=== PATIENT | female | born 1980 | race Caucasian/White ===

== ENCOUNTER → 2017-08-10 | Outpatient (CLI) | payer OTHER, SELFPAY | PROVIDERS: Visit Provider Obstetrics & Gynecology | DX: R10.2 Pelvic and perineal pain (principal); N92.0 Excessive and frequent menstruation with regular cycle | CPT/HCPCS: 76830 ==

== ENCOUNTER → 2017-09-11 16:32 | Outpatient (CLI) | payer OTHER, SELFPAY ==
[2017-09-11 16:36] LABS: Microscopic, Urine URINE MICROSCOPIC (MICROSCOPIC)
[2017-09-11 16:49] LABS: Basophils # 0.1 K/mm3 (0-0.2); Basophils % 0.5 % (0.1-2.0); Eosinophils # 0.3 K/mm3 (0.0-0.4); Eosinophils % 2.4 % (0.1-12.0); Hematocrit 40.1 % (37.0-47.0); Hemoglobin 13.1 g/dL (12.2-16.2); Lymphocytes # 4.1 K/mm3 (0.7-4.5); Lymphocytes % 38.6 K/mm3 (10-50); Mean Corpuscular HGB Conc 32.7 g/dL (31.8-35.4); Mean Corpuscular Hemoglobin 30.6 pg (27.0-31.2); Mean Corpuscular Volume 93.6 fl (81-99); Mean Platelet Volume 7.6 fl (7.4-10.4); Monocytes # 0.6 K/mm3 (0.1-1.0); Monocytes % 5.3 % (1.7-9.3); Neutrophils # 5.6 K/mm3 (1.8-7.8); Neutrophils % 53.1 % (37.0-80.0); Platelet Count 289 K/mm3 (142-424); Red Blood Count 4.29 M/mm3 (4.20-5.40); Red Cell Distribution Width 13.4 % (11.5-17.5); White Blood Count 10.6 K/mm3 (4.8-10.8)
[2017-09-11 17:43] LABS: Appearance,Urine CLEAR (Clear); Bilirubin,Urine Negative (Negative); Blood, Urine 1+ (Negative); Color,Urine YELLOW (Yellow); Glucose,Urine (UA) Negative (Negative); Ketones,Urine Negative (Negative); Leukocyte Esterase,Urine Negative (Negative); Nitrate,Urine Negative (Negative); Protein,Urine Negative (Negative); Specific Gravity, Urine <= 1.005 (1.005-1.030); Urobilinogen,Urine 0.2 EU/dl (0.2)
[2017-09-11 18:14] LABS: Bacteria,Urine Trace /lpf; RBC,Urine Occasional #/hpf (0-3); Squamous Epithelial Cell,Urine Occasional #/hpf (0-5)
[2017-09-11 18:25] LABS: HCG Qualitative, Serum Negative (Negative)
[2017-09-11 18:35] LABS: Alanine Aminotransferase 17 U/L (12-78); Albumin/Globulin Ratio 1.3 (1.1-1.8); Alkaline Phosphatase 48 U/L (46-116); Anion Gap 12.3 mEq/L (5-15); Aspartate Amino Transferase 16 U/L (15-37); Bilirubin,Total 0.2 mg/dL (0.2-1.0); Blood Urea Nitrogen 7 mg/dL (7-18); Calcium 8.8 mg/dL (8.5-10.1); Carbon Dioxide 27 mmol/L (21.0-32.0); Chloride 103 mmol/L (98-107); Creatinine,Serum 0.59 mg/dL (0.55-1.02); Estimated Glomerular Filt Rate 115 ml/min (>60); GFR (African American) 140 ML/MIN (>60); Globulin 3.2 gm/dl (1.3-3.2); Glucose 77 mg/dL (74-106); Potassium 4.3 mmoL/L (3.5-5.1); Sodium 138 mmol/L (136-145); Total Protein,Serum 7.2 gm/dL (6.4-8.2)
== END ==
PROVIDERS: PCP Emergency Medicine; Visit Provider Obstetrics & Gynecology
DX: N93.8 Other specified abnormal uterine and vaginal bleeding (principal); N83.202 Unspecified ovarian cyst, left side; Z01.818 Encounter for other preprocedural examination
CPT/HCPCS: 36415; 80053; 81001; 84703; 85025

== ENCOUNTER 2017-09-14 06:01 | Day surgery (SDC) | payer OTHER, SELFPAY ==
[2017-09-12 15:41] VITALS: BMI 23.0
[2017-09-14] VITALS (17 sets, daily range): BP systolic 90–107; BP diastolic 50–62; PULSE 59–73; RESP 16–98; TEMP 36.1–43; O2SAT 92–98
[2017-09-14 06:31] LABS: Urine Pregnancy, HCG Qual. Negative (Negative)
--- NOTE | 2017-09-14 06:56 | P.PN_ITS ---
[facility] Anesthesia Checklist - Patient Identification Patient Identification: Arm Band, Verbal (Name & ) - Structural Data Admitted From: Home Planned Operative Procedure/s: dx lap, d&c Consent for Planned Operative Procedure(s) Verified: Yes Verified Documents: Surgical Consent - Chart Verification Results Verified: CBC, BMP - Additional verifications Patient : No Anesthesia Reactions: No Hx Blood Transfusions: No Blood Transfusion Reaction: No Cephalosporin Allergy: No Previous Colonoscopy: No - Cardiovascular Assessment Heart Sounds: S1 & S2 Pulse Strength: Strong Pulse Rhythm: Regular Peripheral Edema: No - Airway Assessment C-Spine Mobility Assessed: Yes TMJ Mobility Assessed: Yes Dentition: Edentulous - Neurological Assessment Level of Consciousness: Awake, Alert, Appropriate Hx Seizures: No Numbness or tingling in extremities: No - Anesthesia Plan Anesthesia Risk discussed: Yes Anesthesia Plan: Verified ASA Class: I Anesthesia Type: General [facility] Anesthesia HX I have reviewed the patient's past medical history: Yes Medical History: Reports:: Cancer (cervical) Denies:: Diabetes Mellitus Type 1, Diabetes Mellitus Type 2, MRSA, Seizures Other Medical History: Denies: Blood Transfusion Reaction Other Surgeries: Yes: Dilation and Curettage, Other Amputation: No Fractures: No Comment: cone bx *Family Hx:: Cancer, Hypertension
--- NOTE | 2017-09-14 08:06 | HMH.OPNOTE ---
Date of procedure: 09/14/17 Pre-op Diagnosis:: Preop diagnoses: 1. Dysfunctional uterine bleeding. 2. Pelvic pain. Post-op diagnosis:: other (1. Dysfunctional uterine bleeding.2. Pelvic pain.3. Pelvic adhesions.4. Endometriosis.) Procedure performed:: 1. Dysfunctional uterine bleeding. 2. Pelvic pain. 3. Pelvic adhesions. 4. Endometriosis. Surgeon:: Jesus Polanco MD ROOM SERVICE SERVER:: Ashish Singh Anesthesia: GETA Estimated blood loss (mL): 10 Operative findings:: Pelvic adhesions and endometriosis Operative note:: After the patient was prepped and draped in usual fashion and general anesthesia was administered, examination under anesthesia revealed a normal-sized anteverted uterus, with no palpable adnexal masses. A weighted speculum was placed within the posterior fourchette of the vagina, and the anterior lip of the cervix was grasped with a single-tooth tenaculum. The uterus was then sounded in an anteverted direction to 9 mm, and easily dilated to #20 Hegar dilators. A sharp curette was introduced into the endometrial cavity, with retrieval of a moderate amount of lush endometrium. A HUMI uterine elevator was then inserted into the endocervix, and the bulb inflated for uterine manipulation during the laparoscopy. After appropriate regloving, the skin on either side of the umbilicus was tented up with towel clips. A small incision was made in the base of the umbilicus with a knife, and a Veress needle was inserted into the abdominal cavity. After demonstration of negative pressure, and adequate phisoperitoneum was created with carbon dioxide gas. The Veress needle was then replaced with a trocar and cannula, using the Gridstore system, and the trocar placed a laparoscope. The uterus was of normal size and configuration. There were omental adhesions from the anterior abdominal wall to the right side of the fundus, and these were taken down with a combination of sharp dissection and cautery. The right tube and ovary appeared normal. On the left side, the ovary was slightly enlarged, and contained endometriotic implants on the surface. The reflection of the bladder peritoneum was inspected and found to be normal. The cul-de-sac was then inspected and there were several reddish and yellowish blebs of endometriosis noted, along with a deep peritoneal pocket defect in the left broad ligament. After transillumination and under direct visualization, accessory ports were placed in the right and left lower quadrants. Using a combination of endo-Babcocks and the Endo DIMITRI staplers, the left adnexa was grasped and the ovarian and infundibulopelvic ligaments were cross-clamped and stapled, thus removing the left adnexa. There was no undue bleeding. The upper abdomen was explored, and found to be normal. An Endo Catch basket was then placed within the left lower quadrant port, and the specimen was placed within it and brought out through that port and submitted for pathology. The phisoperitoneum was then reduced, and the instruments were removed under direct visualization. The skin incisions were infused with a dilute solution of Marcaine, as a local anesthetic, and closed with subcuticular sutures of 3-0 Vicryl. The wounds were appropriately dressed. The HUMI was deflated and removed. The sponge and needle count was correct. The estimated blood loss was less than 10 cc. The patient tolerated the procedure well, and was taken to PACU in excellent condition. She will be discharged today, if her vital signs stable. Condition: stable Disposition: same day Specimens:: Uterine curettings Complications:: None
--- NOTE | 2017-09-14 08:09 | P.OP_ITS ---
Date of procedure: 09/14/17 Pre-op Diagnosis:: Preop diagnoses: 1. Dysfunctional uterine bleeding. 2. Pelvic pain. Post-op diagnosis:: other (1. Dysfunctional uterine bleeding.2. Pelvic pain.3. Pelvic adhesions.4. Endometriosis.) Procedure performed:: 1. Dysfunctional uterine bleeding. 2. Pelvic pain. 3. Pelvic adhesions. 4. Endometriosis. Surgeon:: Jesus Polanco MD ELECTRIC RELAY TESTER:: Ashish Singh Anesthesia: GETA Estimated blood loss (mL): 10 Operative findings:: Pelvic adhesions and endometriosis Operative note:: After the patient was prepped and draped in usual fashion and general anesthesia was administered, examination under anesthesia revealed a normal- sized anteverted uterus, with no palpable adnexal masses. A weighted speculum was placed within the posterior fourchette of the vagina, and the anterior lip of the cervix was grasped with a single-tooth tenaculum. The uterus was then sounded in an anteverted direction to 9 mm, and easily dilated to #20 Hegar dilators. A sharp curette was introduced into the endometrial cavity, with retrieval of a moderate amount of lush endometrium. A HUMI uterine elevator was then inserted into the endocervix, and the bulb inflated for uterine manipulation during the laparoscopy. After appropriate regloving, the skin on either side of the umbilicus was tented up with towel clips. A small incision was made in the base of the umbilicus with a knife, and a Veress needle was inserted into the abdominal cavity. After demonstration of negative pressure, and adequate phisoperitoneum was created with carbon dioxide gas. The Veress needle was then replaced with a trocar and cannula, using the Quizens system, and the trocar placed a laparoscope. The uterus was of normal size and configuration. There were omental adhesions from the anterior abdominal wall to the right side of the fundus, and these were taken down with a combination of sharp dissection and cautery. The right tube and ovary appeared normal. On the left side, the ovary was slightly enlarged, and contained endometriotic implants on the surface. The reflection of the bladder peritoneum was inspected and found to be normal. The cul-de-sac was then inspected and there were several reddish and yellowish blebs of endometriosis noted, along with a deep peritoneal pocket defect in the left broad ligament. After transillumination and under direct visualization, accessory ports were placed in the right and left lower quadrants. Using a combination of endo-Babcocks and the Endo DIMITRI staplers, the left adnexa was grasped and the ovarian and infundibulopelvic ligaments were cross-clamped and stapled, thus removing the left adnexa. There was no undue bleeding. The upper abdomen was explored, and found to be normal. An Endo Catch basket was then placed within the left lower quadrant port, and the specimen was placed within it and brought out through that port and submitted for pathology. The phisoperitoneum was then reduced, and the instruments were removed under direct visualization. The skin incisions were infused with a dilute solution of Marcaine, as a local anesthetic , and closed with subcuticular sutures of 3-0 Vicryl. The wounds were appropriately dressed. The HUMI was deflated and removed. The sponge and needle count was correct. The estimated blood loss was less than 10 cc. The patient tolerated the procedure well, and was taken to PACU in excellent condition. She will be discharged today, if her vital signs stable. Condition: stable Disposition: same day Specimens:: Uterine curettings Complications:: None
--- NOTE | 2017-09-14 08:11 | HMH.ANESI ---
[facility] Anesthesia Record Part I Intake, IV Amount: 1,000 Estimated blood loss (mL): 10 Urine output (mL): 25 Blood Pressure: 95/59 SaO2: 95 Pulse Rate: 73 Respiratory Rate: 16 Temperature: 97.2 F Patient is:: Drowsy, Nasal O2, Stable Stable to PACU at:: 08:10
--- NOTE | 2017-09-14 08:12 | P.PN_ITS ---
[facility] Anesthesia Record Part II Discharge Time: 08:40 Destination: [facility] PACU nurse assessment reviewed?: Yes Patient Condition:: Good Anesthesia Complications:: None
--- NOTE | 2017-09-14 08:12 | HMH.ANESII ---
[facility] Anesthesia Record Part II Discharge Time: 08:40 Destination: [facility] PACU nurse assessment reviewed?: Yes Patient Condition:: Good Anesthesia Complications:: None
[2017-09-14 09:39] LABS: Hematocrit 35.5 % (37.0-47.0); Hemoglobin 11.7 g/dL (12.2-16.2)
== END 2017-09-14 10:45 | disposition home or self-care (01) ==
PROVIDERS: Family Provider Emergency Medicine; PCP Emergency Medicine; Visit Provider Obstetrics & Gynecology
PROC: (CPT 58120; principal; 2017-09-14 07:30)
DX: N93.8 Other specified abnormal uterine and vaginal bleeding (principal); R10.2 Pelvic and perineal pain; N80.0 Endometriosis of uterus
CPT/HCPCS: 58661; 58120; 36415; 81025; 85014; 85018; 96374; J0131; J2405; J2710

== ENCOUNTER → 2018-05-29 14:28 | Outpatient (CLI) | payer OTHER, SELFPAY ==
--- NOTE | 2018-05-29 14:30 | US_ITS ---
US transvaginal HISTORY: ITS.REASON: pelvic pain known endometriosis ORDERING PHYSICIAN: Jesus Polanco MD PATIENT AGE: 37 years Comparison: 08/10/2017 Last menstrual period 05/22/2018 FINDINGS: The uterus measures 8.4 x 4.7 x 5.5 cm. Combined and endometrial thickness is 1 cm.. Nabothian cysts are noted. The right ovary measures 3.4 x 22.6 cm and contains a 1.5 x 1 cm cyst. The ovary has a lobulated contour. The left ovary is surgically absent. No cul-de-sac fluid evident. IMPRESSION: 1. Prior left oophorectomy. 2. Small right ovarian cyst at 1.5 cm
== END ==
PROVIDERS: Family Provider Emergency Medicine; PCP Emergency Medicine; Visit Provider Obstetrics & Gynecology
DX: N80.9 Endometriosis, unspecified (principal); R10.2 Pelvic and perineal pain
CPT/HCPCS: 76830

== ENCOUNTER → 2018-06-21 16:46 | Outpatient (CLI) | payer OTHER, SELFPAY ==
[2018-06-21 16:49] LABS: Microscopic, Urine URINE MICROSCOPIC (MICROSCOPIC)
[2018-06-21 17:30] LABS: Appearance,Urine CLEAR (Clear); Bilirubin,Urine Negative (Negative); Blood, Urine Negative (Negative); Color,Urine YELLOW (Yellow); Glucose,Urine (UA) Negative (Negative); Ketones,Urine Negative (Negative); Leukocyte Esterase,Urine Negative (Negative); Nitrate,Urine Negative (Negative); Protein,Urine Negative (Negative); Specific Gravity, Urine 1.015 (1.005-1.030); Urobilinogen,Urine 0.2 EU/dl (0.2)
[2018-06-21 17:53] LABS: Basophils # 0.1 K/mm3 (0-0.2); Basophils % 0.8 % (0.1-2.0); Eosinophils # 0.2 K/mm3 (0.0-0.4); Eosinophils % 2.9 % (0.1-12.0); Hematocrit 40.8 % (37.0-47.0); Hemoglobin 13.1 g/dL (12.2-16.2); Lymphocytes # 3.5 K/mm3 (0.7-4.5); Lymphocytes % 46.3 K/mm3 (10-50); Mean Corpuscular HGB Conc 32.2 g/dL (31.8-35.4); Mean Corpuscular Hemoglobin 30.7 pg (27.0-31.2); Mean Corpuscular Volume 95.6 fl (81-99); Mean Platelet Volume 7.4 fl (7.4-10.4); Monocytes # 0.5 K/mm3 (0.1-1.0); Monocytes % 6.3 % (1.7-9.3); Neutrophils # 3.3 K/mm3 (1.8-7.8); Neutrophils % 43.6 % (37.0-80.0); Platelet Count 255 K/mm3 (142-424); Red Blood Count 4.27 M/mm3 (4.20-5.40); White Blood Count 7.6 K/mm3 (4.8-10.8)
[2018-06-21 19:22] LABS: Alanine Aminotransferase 13 U/L (12-78); Albumin Level 3.8 gm/dL (3.4-5.0); Albumin/Globulin Ratio 1.3 (1.1-1.8); Alkaline Phosphatase 51 U/L (46-116); Anion Gap 12.8 mEq/L (5-15); Aspartate Amino Transferase 12 U/L (15-37); Bilirubin,Total 0.2 mg/dL (0.2-1.0); Blood Urea Nitrogen 9 mg/dL (7-18); Calcium 8.7 mg/dL (8.5-10.1); Carbon Dioxide 27 mmol/L (21.0-32.0); Chloride 105 mmol/L (98-107); Creatinine,Serum 0.64 mg/dL (0.55-1.02); Estimated Glomerular Filt Rate 104 ml/min (>60); GFR (African American) 126 ML/MIN (>60); Glucose 91 mg/dL (74-106); Potassium 3.8 mmoL/L (3.5-5.1); Sodium 141 mmol/L (136-145); Total Protein,Serum 6.8 gm/dL (6.4-8.2)
[2018-06-21 19:47] LABS: Bacteria,Urine Trace /lpf; Squamous Epithelial Cell,Urine Occasional #/hpf (0-5)
[2018-06-21 20:24] LABS: HCG Qualitative, Serum Negative (Negative)
== END ==
PROVIDERS: Visit Provider Obstetrics & Gynecology
DX: Z01.818 Encounter for other preprocedural examination (principal); N80.9 Endometriosis, unspecified; R10.2 Pelvic and perineal pain
CPT/HCPCS: 36415; 80053; 81001; 84703; 85025

== ENCOUNTER 2018-06-26 06:27 | Inpatient (IN) ==
--- NOTE | 2018-06-26 07:33 | Progress Note ---
[facility] Anesthesia Checklist - Patient Identification Patient Identification: Arm Band - Structural Data Admitted From: Home Planned Operative Procedure/s: YADIRA, RSO, Lysis of Adhesions Consent for Planned Operative Procedure(s) Verified: Yes Verified Documents: Surgical Consent, History and Physical - NPO Status Verified Time NPO: 00:00 - Additional verifications Anesthesia Reactions: No - Airway Assessment C-Spine Mobility Assessed: Yes (mp2) TMJ Mobility Assessed: Yes Dentition: Good Dentition - Neurological Assessment Level of Consciousness: Awake, Alert - Anesthesia Plan Anesthesia Risk discussed: Yes Anesthesia Plan: Verified ASA Class: II Anesthesia Type: General [facility] History I have reviewed the patient's past medical history: Yes Medical History: Reports:: Cancer (cervical) Denies:: Diabetes Mellitus Type 1, Diabetes Mellitus Type 2, Internal Pacemaker, MRSA, Seizures Other Medical History: Denies: Blood Transfusion Reaction Other Surgeries: Yes: , Dilation and Curettage, Other (dx laparoscopy, LEEP procedure). No: Pacemaker Amputation: No Fractures: No - *Social History Educational Level: Completed High School Smoking Status: Current every day smoker Tobacco Type: cigarettes # Packs/Day (cigarettes): 1 Alcohol Intake: never Alcohol Intake Frequency:: other Substance Use Type: denies use Occupational Status: employed Housing: house - Psychiatric History Expresses thoughts of harming self/others: None Suicide Plan Description: No Plan *Family Hx:: Cancer, Hypertension
--- NOTE | 2018-06-26 10:11 | Operative Note ---
Date of procedure: 06/26/18 Pre-op Diagnosis:: 1. Pelvic pain. 2. Endometriosis. Post-op Diagnosis:: 1. Pelvic pain. 2. Endometriosis. 3. Extensive adhesions. Procedure performed:: 1. Total abdominal hysterectomy. 2. Right salpingo-oophorectomy. 3. Extensive lysis of adhesions. Surgeon:: Jesus Polanco MD Accounts Executive(s):: EYSY Rodriguez PRODUCTION LINE:: Pollo Hough Anesthesia: GETA Estimated blood loss (mL): 300 Operative findings:: 1. Extensive omental adhesions. 2. Endometriosis. Operative note:: After the patient was prepped and draped in usual fashion and general anesthesia was administered, a low Pfannenstiel incision was made through the previous incision, and the fat and fascia in usual fashion, bleeders being clamped and coagulated along the way. Peritoneum was entered with a bump scissors, and extended above and below. There were extensive omental adhesions to the anterior abdominal wall, and these were taken down with a combination of sharp dissection and cautery. The bowel was then packed away, and a self- retaining Colfax retractor blade was placed. The uterus was slightly enlarged and boggy. The tube and ovary were surgically absent. The right tube and ovary were present, and there was a small right ovarian cyst identified. Endometrial implants were noted throughout the cul-de-sac. The uterine fundus was grasped with a double-tooth tenaculum, and the round ligaments on either side were Madelyn clamped, cut, and Madelyn suture with #1 Vicryl. The bladder flap was developed with sharp and blunt dissection (3 previous sections), and the bladder was protected with the bladder blade. The ovarian ligament was crossclamped and cut, thus including the right tube and ovary within the uterine specimen. This pedicle was Madelyn sutured, and then free tied with #1 Vicryl. The uterine vessels, the cardinal and the uterosacral ligaments were individually, bilaterally, Madelyn clamped, cut, and Madelyn sutured with #1 Vicryl. The vagina was then entered anteriorly with a knife, and Lindsey clamps were used to tent up the vaginal cuff, as the use was removed with Lexx scissors. The vaginal cuff was then closed with a running lock suture of #1 Vicryl, to include the uterosacral ligaments for vaginal support. The pelvis was then irrigated. There was no bleeding except for some oozing along the back of the vaginal cuff, and Surgicel was placed there for hemostasis. The upper abdomen was then explored. The appendix was identified and found to be retrocecal, and remains in situ. The peritoneum was then grasped with 3 Jihan clamps, and closed with a running semi-locked suture of 0 Vicryl. The muscle was approximated with a running unlocked suture of 0 Vicryl. The fascia was closed with a running locked suture of #1 Vicryl. The subcutaneous fat and Gracy's fascia were closed with a running unlocked suture of 2-0 Vicryl. The skin was closed with a running unlocked suture of 3-0 Vicryl, and appropriately dressed. The urine is clear in the Chowdhury catheter. The sponge and needle counts correct. The estimated blood loss was 300 cc. The patient tolerated the procedure well, and was taken to PACU in excellent condition. She will be admitted postoperatively. Condition: stable Disposition: PACU Specimens:: 1. Uterus. 2. Right adnexa. Complications:: None
--- NOTE | 2018-06-26 10:19 | Progress Note ---
[facility] Anesthesia Record Part II Discharge Time: 10:45 Destination: Surgical Day Care (OP Surgery) PACU nurse assessment reviewed?: Yes Patient Condition:: Good Anesthesia Complications:: None
--- NOTE | 2018-06-26 10:19 | Progress Note ---
[facility] Anesthesia Record Part I Intake, IV Amount: 1,600 Estimated blood loss (mL): 10 Urine output (mL): 50 Blood Products used (#): none Blood Pressure: 116/71 SaO2: 95 Pulse Rate: 70 Respiratory Rate: 20 Temperature: 97.9 F Patient is:: Awake, Stable Stable to PACU at:: 10:15
[2018-06-26 11:37] LABS: Hematocrit 36.3 % (37.0-47.0); Hemoglobin 11.9 g/dL (12.2-16.2)
--- NOTE | 2018-06-26 13:29 | Pharmacy Consult Notes ---
[facility] Pharmacy VTE Monitoring - Patient Demographics Admission date: 06/26/18 Report Date: 06/26/18 Time: 13:26 Allergies/Adverse Reactions: Patient Allergies No Known Drug Allergies [NKDA] Allergy (Unknown, Verified 06/26/18 06:53) Height: 1.6 m Weight: 61.235 kg - VTE Risk Labs: VTE Related Lab Results Hgb 11.9 g/dL (12.2-16.2) L 06/26/18 11:13 Hct 36.3 % (37.0-47.0) L 06/26/18 11:13 - Prophylaxis VTE Prophylaxis Ordered?: Yes Types of VTE Prophylaxis: IPCS Knee High Location of Applied Device: Bilateral Lower Extremeties
--- NOTE | 2018-06-26 16:47 | Progress Note ---
Internal Medicine - PN: Subj *Date: 06/26/18 *Time: 16:46 Interval history: This is day of surgery. The patient is afebrile. Vital signs stable. Wound clean. Abdomen soft. Hemoglobin 11.9 g. Surgery has been explained to the patient. Impression: Stable. Exam Vital signs and Labs for Last 24 Hours: Temp Pulse Resp BP Pulse Ox 98.0 F 74 16 106/62 L 99 06/26/18 11:05 06/26/18 15:05 06/26/18 12:35 06/26/18 15:05 06/26/18 15:05 Laboratory Results - last 24 hr 06/26/18 08:41: Urine Color Straw, Urine Appearance Clear, Urine pH 7.0, Ur Specific [place] 1.015, Urine Protein Negative, Urine Glucose (UA) Negative, Urine Ketones Negative, Urine Blood Negative, Urine Nitrate Negative, Urine Bilirubin Negative, Urine Urobilinogen 0.2, Ur Leukocyte Esterase Negative, Urine RBC Occasional, Urine WBC None, Ur Squamous Epith Cells 5-10, Urine Bacteria Trace 06/26/18 11:13: Hgb 11.9 L, Hct 36.3 L I & O for Last 24 hours: Intake & Output 06/24/18 06/25/18 06/26/18 06/27/18 11:59 11:59 11:59 11:59 Intake Total 1600 / 1600 Balance 1600 / 1600 Weight 135 lb 135 lb
--- NOTE | 2018-06-27 07:25 | Progress Note ---
Internal Medicine - PN: Subj *Date: 06/27/18 *Time: 07:23 Interval history: This is postop day #1. The patient is afebrile. Vital signs stable. Wound clean. Abdomen soft. Her Chowdhury has been removed and she has voided well. She is taking liquids well and ambulating. She is complaining of itching and I will give her some Benadryl. She is now transitioning to oral pain medication. Hemoglobin 11.9 g. Going to start her on a soft diet. Exam Vital signs and Labs for Last 24 Hours: Temp Pulse Resp BP Pulse Ox 98.7 F 71 16 102/63 L 99 06/27/18 04:40 06/27/18 04:40 06/27/18 04:40 06/27/18 04:40 06/27/18 04:40 Laboratory Results - last 24 hr 06/26/18 08:41: Urine Color Straw, Urine Appearance Clear, Urine pH 7.0, Ur Specific Means 1.015, Urine Protein Negative, Urine Glucose (UA) Negative, Urine Ketones Negative, Urine Blood Negative, Urine Nitrate Negative, Urine Bilirubin Negative, Urine Urobilinogen 0.2, Ur Leukocyte Esterase Negative, Urine RBC Occasional, Urine WBC None, Ur Squamous Epith Cells 5-10, Urine Bacteria Trace 06/26/18 11:13: Hgb 11.9 L, Hct 36.3 L I & O for Last 24 hours: Intake & Output 06/24/18 06/25/18 06/26/18 06/27/18 11:59 11:59 11:59 11:59 Intake Total 1600 / 1600 2982 / 2982 Output Total 1400 / 1400 Balance 1600 / 1600 1582 / 1582 Weight 135 lb 135 lb
--- NOTE | 2018-06-28 06:26 | Progress Note ---
Internal Medicine - PN: Subj *Date: 06/28/18 *Time: 06:25 Interval history: This is postop day #2. The patient is afebrile. Vital signs stable. Wound clean. Abdomen soft. She is eating and ambulating, and has passed flatus. No bowel movement yet. Impression: Improving. Exam Vital signs and Labs for Last 24 Hours: Temp Pulse Resp BP Pulse Ox 98.6 F 79 16 113/71 97 06/28/18 04:40 06/28/18 04:40 06/28/18 04:40 06/28/18 04:40 06/28/18 04:40 I & O for Last 24 hours: Intake & Output 06/25/18 06/26/18 06/27/18 06/28/18 11:59 11:59 11:59 11:59 Intake Total 1600 / 1600 2982 / 2982 Output Total 625 / 625 1400 / 1400 150 / 150 Balance 975 / 975 1582 / 1582 -150 / -150 Weight 135 lb 135 lb
--- NOTE | 2018-06-28 15:36 | Progress Note ---
Internal Medicine - PN: Subj *Date: 06/28/18 *Time: 15:36 Interval history: The patient is doing well. She is eating and ambulating and passing flatus. Her wound is clean. Her abdomen is soft. She is anxious for early discharge and will be discharged this afternoon. Exam Vital signs and Labs for Last 24 Hours: Temp Pulse Resp BP Pulse Ox 98.3 F 77 16 111/65 96 06/28/18 07:25 06/28/18 07:25 06/28/18 07:25 06/28/18 07:25 06/28/18 07:25 I & O for Last 24 hours: Intake & Output 06/26/18 06/27/18 06/28/18 06/29/18 11:59 11:59 11:59 11:59 Intake Total 1600 / 1600 2982 / 2982 Output Total 625 / 625 1400 / 1400 150 / 150 Balance 975 / 975 1582 / 1582 -150 / -150 Weight 135 lb 135 lb
--- NOTE | 2018-06-28 15:40 | Discharge Summary ---
General - General Admission date:: 06/26/18 Discharge date: 06/28/18 (This 37-year-old white female was admitted for definitive treatment of endometriosis and pelvic pain. She had previously had a left salpingo-oophorectomy. On the date of admission, she was taken to the operating room where she underwent a total abdominal hysterectomy and right salpingo-oophorectomy, without complications. There were extensive pelvic adhesions which were also lysed at the time of surgery. Her hemoglobin on admission was 12.8 g; postoperatively it is 11.9 g. On postop day #2, she is eating and ambulating and is passing flatus. Her wound is clean. Her abdomen is soft. She is discharged home on the second postoperative day on Dilaudid 4 mg (#20), 1 p.o. q. 6h prn pain, to be alternated with Tylenol Motrin. She is given appropriate instructions as to diet and exercise, and she is to return the office in 2 weeks for follow-up) Objective Vital signs: Temp Pulse Resp BP Pulse Ox 98.3 F 77 16 111/65 96 06/28/18 07:25 06/28/18 07:25 06/28/18 07:25 06/28/18 07:25 06/28/18 07:25 Discharge Plan - Patient Discharge Instructions Additional Instructions: FOLLOW-UP WITH DR. GARCIA ON 07/10/2018 at 10:00 NO DRIVING FOR 2 WEEKS NO HEAVY LIFTING NOTHING IN VAGINA FOR 6 WEEKS Patient Instructions: How to Care for a Surgical Wound, Hysterectomy -- Open Surgery - Follow up Plan Home Medications: Home Medications Medication Instructions Recorded Confirmed Type Chlorhexidine Gluconate 1 applic TOPICAL Q5M 06/25/18 06/26/18 History Prescriptions/Medication Reconciliation: No Action Chlorhexidine Gluconate 1 applic TOPICAL Q5M
== END 2018-06-28 15:30 | disposition home or self-care (01) ==
LOC: OR 06:27 → OB 10:06
PROVIDERS: ADMIT Obstetrics & Gynecology; ATTEND Obstetrics & Gynecology

== ENCOUNTER 2020-04-09 18:07 | Emergency (ER) | payer OTHER, SELFPAY ==
[2020-04-09 18:17] VITALS: BP 139/104; PULSE 71; RESP 18; TEMP 36.7; O2SAT 98; BMI 21.2
--- NOTE | 2020-04-09 18:20 | XR_ITS ---
PROCEDURE: XR SHOULDER LT MIN 2V CLINICAL INDICATION: pain COMPARISON: CR XR HUMERUS LT from 04/09/2020 FINDINGS: No fracture or dislocation. No lytic or blastic change. There is normal mineralization. The joint spaces are well-preserved. No significant degenerative/arthritic changes. No erosive changes evident. Other findings:There is a small sclerotic focus involving the inferior aspect of the glenoid consistent with a small bone island approximately mm. IMPRESSION: No acute finding. Suspect small bone island of the glenoid Dictated by: Jr Parsons MD 04/10/2020 07:18 Jr Parsons MD in OV 04/10/2020 07:18
--- NOTE | 2020-04-09 18:49 | HMH.EDUTC ---
[facility] [place] Disposition Clinical Impression: Left shoulder pain Qualifiers: Chronicity: acute Qualified Code(s): M25.512 - Pain in left shoulder Left shoulder strain Qualifiers: Encounter type: initial encounter Qualified Code(s): S46.912A - Strain of unspecified muscle, fascia and tendon at shoulder and upper arm level, left arm, initial encounter Disposition: Home, Self-Care Condition on Discharge: Good Instructions: Shoulder Sprain, Shoulder Tendinopathy, DI for Shoulder Pain Additional Instructions: Rest the extremity, Elevate the extremity as tolerated while you are resting. Baby your shoulder for the next week or so to help it heal. Start the oral steroids tomorrow. Follow up with Dr. Mari (orthopedics). I put in a referral but you need to call her office and schedule an appointment. Follow up with your regular doctor. GO TO THE ER FOR ANY WORSENING SYMPTOMS Prescriptions: methylPREDNISolone [Medrol] 4 mg PO DIRECTED 6 Days #21 tab.ds.pk Transmission Status: Pending to [facility] Methocarbamol [Robaxin 500mg Tab] 500 mg PO BIDP PRN #30 tab PRN Reason: Muscle Spasm Transmission Status: Pending to [facility] Referrals: Arpit Mcwilliams MD [Primary Care Provider] - Karla Mari MD [Physician] - Time of Disposition: 18:57 Medical Decision Making - Medical Records Medical records reviewed: No: I reviewed the patient's medical records. - Yasmany Inquiry Pt receiving controlled substance: No Vital Signs: 04/09/20 18:17 Temperature 98.0 F Temperature Source Oral Pulse Rate [Radial] 71 Respiratory Rate 18 Blood Pressure [Right Arm] 139/104 H Blood Pressure Mean [Right Arm] 115 Blood Pressure Source [Right Arm] Automatic Cuff Blood Pressure Position [Right Arm] Sitting 02 Sat by Pulse Oximetry 98 Oxygen Delivery Method Room Air Orders (Tests/Meds): ED MEDICATIONS Discontinued Medications Generic Name Dose Route Start Last Admin Trade Name Freq PRN Reason Stop Dose Admin Ketorolac Tromethamine 60 mg 04/09/20 18:25 04/09/20 18:32 Toradol 60mg/2ml Vial IM 04/09/20 18:26 60 mg ONCE ONE Administration Methylprednisolone Sodium Succinate 125 mg 04/09/20 18:25 04/09/20 18:32 Solu-Medrol 125mg/2ml Vial IM 04/09/20 18:26 125 mg ONCE ONE Administration ORDERS Category Date Time Status Shoulder XR left minimum 2 views [XR shoulder LT min 2V Exams 04/09/20 18:20 Ordered ] Stat XR humerus LT Stat Exams 04/09/20 18:20 Ordered - Radiology Data #1 Image(s): Shoulder Image Reviewed: Yes I reviewed the patient's radiology image Preliminary Findings: No Fracture Seen [facility] [place] HPI - General Stated complaint: Left shoulder pain Time Seen by Provider: 04/09/20 18:25 Mode of Arrival: Ambulatory Source of Information: Patient Limitations: No Limitations Description of Symptoms (Recalled from Triage Doc. by RN): left shoulder pain HEENT Symptoms (Recalled from RN notes): No Resp Symptoms (Recalled from RN notes): No Skin Symptoms (Recalled from RN notes): No MS Symptoms (Recalled from RN notes): Yes Functional Status (Recalled from RN notes): wnl - History of Present Illness Provider Complaint: She c/o left shoulder stiffness and pain. Her symptoms began approx 2 weeks ago when she was tubing behind a boat. She held on to someone else with her left arm and then afterwards she began to have the shoulder pain. Since then, moving the shoulder certain ways and using the left arm very much makes the pain worse. The shoulder also feels like it is catching and popping often. She denies any chest pain or radiation of the pain. - Related Data Home Medications Medication Instructions Recorded Confirmed estradiol valerate 20 mg/mL 20 mg IM Q4W 02/03/20 intramuscular oil Previous Rx's Medication Instructions Recorded Methocarbamol [Robaxin 500mg Tab] 500 mg PO BIDP PRN #30 tab 04/09/20 methylP
[2020-04-09 19:15] VITALS: BP 139/104; PULSE 71; RESP 18; TEMP 36.7; O2SAT 98
== END 2020-04-09 19:16 | disposition home or self-care (01) ==
PROVIDERS: Emergency Provider Nurse Practitioner Family; PCP Emergency Medicine
DX: S46.912A Strain of unspecified muscle, fascia and tendon at shoulder and upper arm level, left arm, initial encounter (principal); V92.06XA Drowning and submersion due to fall off (nonpowered) inflatable craft, initial encounter; Y93.16 Activity, rowing, canoeing, kayaking, rafting and tubing; Y92.39 Other specified sports and athletic area as the place of occurrence of the external cause; F17.210 Nicotine dependence, cigarettes, uncomplicated
CPT/HCPCS: 73030; 73060; 96372; 99202

== ENCOUNTER → 2021-07-12 16:34 | Outpatient (CLI) | payer BC, SELFPAY ==
--- NOTE | 2021-07-12 16:41 | XR_ITS ---
PROCEDURE INFORMATION: Exam: XR Lumbosacral Spine Exam date and time: 07/12/2021 4:41 PM Age: 40 years old Clinical indication: Low back pain; Additional info: Lower back pain TECHNIQUE: Imaging protocol: XR of the lumbosacral spine. Views: 4 or 5 views. COMPARISON: TRANVAG US transvaginal 05/29/2018 3:02 PM FINDINGS: Bones/joints: No acute fracture, spondylolysis or spondylolisthesis. Disc spaces are preserved. Mild facet arthrosis at L4-L5 and L5-S1. SI joints are unremarkable. Soft tissues: Unremarkable. IMPRESSION: Mild degenerative facet disease.
--- NOTE | 2021-07-12 16:41 | XR_ITS ---
PROCEDURE INFORMATION: Exam: XR Sacrum and Coccyx, 2 or More Views Exam date and time: 07/12/2021 4:41 PM Age: 40 years old Clinical indication: Pain in coccyx area; Additional info: Lower back pain and tailbone pain TECHNIQUE: Imaging protocol: XR of the sacrum and coccyx, 2 or more views. COMPARISON: TRANVAG US transvaginal 05/29/2018 3:02 PM FINDINGS: Bones/joints: No acute fracture or dislocation. SI joints, hip joints and pubic symphysis are unremarkable. Soft tissues: Normal. IMPRESSION: No acute findings.
== END ==
PROVIDERS: PCP Family Medicine; Visit Provider Family Medicine
DX: M53.3 Sacrococcygeal disorders, not elsewhere classified (principal)
CPT/HCPCS: 72110; 72220

== ENCOUNTER → 2021-07-23 16:07 | Outpatient (CLI) | payer BC, SELFPAY ==
--- NOTE | 2021-07-23 16:07 | MM_ITS ---
PROCEDURE INFORMATION: Exam: MG Bilateral Screening 3D Mammography Exam date and time: 07/23/2021 4:07 PM Age: 40 years old Clinical indication: Encounter for screening mammogram for malignant neoplasm of breast TECHNIQUE: Imaging protocol: Bilateral screening tomosynthesis and 2D mammography including computer-aided detection (CAD) when performed. COMPARISON: No relevant prior studies available. FINDINGS: MAMMOGRAPHY: Breast composition: The breast tissue is composed of scattered areas of fibroglandular density. Mass: Questionable 0.8 cm mass in the middle third of the left upper inner quadrant Architectural distortion: None. Calcifications: No suspicious calcifications. Asymmetric density: None. Skin thickening: None. Axillary adenopathy: None. IMPRESSION: Patient to be recalled for spot compression views of the left breast in the CC and MLO projections, a full 90 degree lateral view, and left breast ultrasound for further evaluation of a left breast mass. ASSESSMENT: BI-RADS Category 0: Incomplete- Need Additional Imaging Evaluation and/or Prior Mammograms for Comparison
== END ==
PROVIDERS: PCP Family Medicine; Visit Provider Obstetrics & Gynecology
DX: Z12.31 Encounter for screening mammogram for malignant neoplasm of breast (principal)
CPT/HCPCS: 77063; 77067

== ENCOUNTER → 2021-08-12 16:10 | Outpatient (CLI) | payer BC, SELFPAY ==
--- NOTE | 2021-08-12 16:13 | MR_ITS ---
PROCEDURE: MR PELVIS WO CON CLINICAL INDICATION: COCCYDYNIA COMPARISON: No exams were available for comparison TECHNIQUE: Routine multiplanar multi echo sequences are performed without gadolinium enhancement. FINDINGS: This exam only well cover is a sacrum and the coccyx. This does not include the anterior or lower aspect of the pelvis or the hips. The sacrum and coccyx have an unremarkable appearance. No fracture or dislocation. No bony destructive process. There is normal alignment. The SI joints are unremarkable. Prior hysterectomy. IMPRESSION: Negative MRI the sacrum and coccyx. Dictated by: Jr Parsons MD 08/13/2021 10:33 Jr Parsons MD in [place] 08/13/2021 10:33
--- NOTE | 2021-08-12 16:13 | MR_ITS ---
PROCEDURE: MR LUMBAR SPINE WO CON CLINICAL INDICATION: COCCYDYNIA COMPARISON: CR XR LUMBAR SPINE MIN 4V from 07/12/2021 TECHNIQUE: Standard multiplanar multiecho sequences are performed without contrast. 3-D MIP and myelographic images are also rendered and reviewed FINDINGS: There is normal alignment. The spinal cord ends at the L1 level. No disc herniation apparent. The no bony canal stenosis. There is mild facet and ligamentum hypertrophic changes at L3-L4, L4-5 and L5-S1 with minimal bilateral foraminal and lateral recess narrowing at these levels. IMPRESSION: Mild facet and ligamentum hypertrophy at L3-L4, L4-5, and L5-S1 with minimal bilateral lateral recess and foraminal narrowing. No disc herniation Dictated by: Jr Parsons MD 08/13/2021 10:24 Jr Parsons MD in [place] 08/13/2021 10:24
== END ==
PROVIDERS: PCP Family Medicine; Visit Provider Family Medicine
DX: M53.3 Sacrococcygeal disorders, not elsewhere classified (principal)
CPT/HCPCS: 72148; 72195; 76376

== ENCOUNTER → 2021-08-18 14:04 | Outpatient (CLI) | payer BC, SELFPAY ==
--- NOTE | 2021-08-18 14:04 | US_ITS ---
PROCEDURE INFORMATION: Exam: US Left Breast, Complete Exam date and time: 08/18/2021 2:04 PM Age: 40 years old Clinical indication: Patient recalled for further evaluation of a questionable left breast mass TECHNIQUE: Imaging protocol: Complete ultrasound of all four quadrants of the Left breast and the retroareolar regions, including ultrasound of the axilla when performed. COMPARISON: MG MM DIG SCREENING MAMM BI W/CAD 07/23/2021 4:06 PM FINDINGS: Breast: Sonographic images of the left breast including the retroareolar region, all 4 quadrants and the axilla do not demonstrate any solid masses. Few scattered subcentimeter cysts are noted. No architectural distortion or acoustical shadowing. No skin thickening or axillary adenopathy. IMPRESSION: No sonographic evidence of malignancy. Annual mammographic screening is recommended unless otherwise clinically indicated. ASSESSMENT: BI-RADS Category 2: Benign
--- NOTE | 2021-08-18 14:04 | MM_ITS ---
PROCEDURE INFORMATION: Exam: MG Left Diagnostic Breast Tomosynthesis Exam date and time: 08/18/2021 2:04 PM Age: 40 years old Clinical indication: Patient recalled for further evaluation of a questionable left breast mass TECHNIQUE: Imaging protocol: Left Diagnostic tomosynthesis and 2D mammography including computer-aided detection (CAD) when performed. Unilateral or bilateral exam. COMPARISON: MG MM DIG SCREENING MAMM BI W/CAD 07/23/2021 4:06 PM FINDINGS: MAMMOGRAPHY: Digital diagnostic spot compression views of the left breast and 90 degree lateral view demonstrate normal overlapping fibroglandular structures without definitive persistent mass or asymmetry identified in 2 projections. Sonography performed 08/18/2021 did not demonstrate any suspicious findings IMPRESSION: Probably benign subcentimeter tissue asymmetry in the left upper inner quadrant. A six-month follow-up diagnostic left mammogram is recommended to ensure stability of the pattern identified unless otherwise clinically indicated. ASSESSMENT: BI-RADS Category 3: Probably benign
== END ==
PROVIDERS: PCP Family Medicine; Visit Provider Obstetrics & Gynecology
DX: N63.20 Unspecified lump in the left breast, unspecified quadrant (principal)
CPT/HCPCS: 76641; 77061; 77065; G0279

== ENCOUNTER 2022-06-30 14:08 | Emergency (ER) | payer BC, SELFPAY ==
--- NOTE | 2022-06-30 14:18 | EXP.UTC ---
Discharge Plan Disposition Patient Disposition: Home, Self-Care Condition: Good Prescriptions Prescriptions: New azithromycin [Zithromax] 250 mg tablet 250 mg PO UD DOSE PK Qty: 6 0RF Rx Instructions: Take two (2) tablets today, then one (1) tablet days #2 thru #5 benzonatate [benzonatate] 100 mg capsule 100 mg PO TIDP PRN (Reason: Cough) Qty: 30 0RF methylprednisolone 4 mg Tablets,Dose Pack 4 mg PO DIRECTED Qty: 21 0RF No Action estradiol [Minivelle] 0.1 mg/24 hr patch semiweekly 1 patch TRANSDERMA .bi weekly 7 Days Qty: 8 11RF Referrals Follow up/Referrals: Arpit Mcwilliams MD [Primary Care Provider] - See instructions Activity Restrictions/Add. Instructions Additional Instructions/Restrictions: Drink plenty of fluids. Take tylenol or ibuprofen for pain or fever. Take the medications as directed. Follow up with your regular doctor. GO TO THE ER FOR ANY WORSENING SYMPTOMS Clinical Impressions Clinical Impression: Viral syndrome, Pharyngitis Stand Alone Forms Stand Alone Forms: Work/School Release Instructions Patient Instructions: DI for Pharyngitis/Tonsillopharyngitis -- Adult, DI for Viral Syndrome Discharge ED Provider: Salvador Bourgeois [facility] [place] HPI General Stated complaint: Sore throat, congestion, fever Time Seen by Provider: 06/30/22 14:17 History of Present Illness Provider Complaint: She states that for the past 1 day, she has felt bad, ran a fever, chills, and body aches. She has a very sore throat. Related Data Previous Rx's Medication Instructions Recorded estradiol 0.1 mg/24 hr semiweekly 1 patch transdermal .bi weekly 7 12/01/21 transdermal patch (Minivelle) days #8 ea azithromycin 250 mg tablet 250 mg PO UD DOSE PK #6 tabs 06/30/22 (Zithromax) benzonatate 100 mg capsule 100 mg PO TIDP PRN Cough #30 caps 06/30/22 methylprednisolone 4 mg tablets in 4 mg PO DIRECTED #21 tabs 06/30/22 a dose pack Allergies Allergy/AdvReac Type Severity Reaction Status Date / Time No Known Drug Allergies Allergy Unknown Verified 06/30/22 14:28 [NKDA] [facility] Social History Smoking Status: Current every day smoker tobacco type: cigarettes packs per day: 1 second hand exposure: Yes alcohol intake: never substance use type: denies use current occupational status: employed Travel in the last 8 weeks: None housing: house current occupation: customer rep current occupational exposures/hazards: No caffeine: Yes ROS Obtained: Yes All systems reviewed & no additional complaints except as documented Constitutional Constitutional: Reports chills and Reports fever(s) Eyes Eyes: Denies eye discharge ENT Ears, Nose, Mouth, and Throat: Reports as per HPI Cardiovascular Cardiovascular: Denies chest pain Respiratory Respiratory: Denies chest congestion and Reports cough Gastrointestinal Gastrointestingal: Reports nausea; Denies abdominal pain, constipation, cramping, diarrhea or vomiting Musculoskeletal Musculoskeletal: Denies arthralgias Integumentary/Breasts Skin/Breast: Denies rash Neurologic Neurologic: Denies paresthesias Physical Exam General General appearance: alert and in no apparent distress Head Head exam: atraumatic, normocephalic and normal inspection Eye Eye exam: Present normal appearance, PERRL and EOMI ENT ENT exam: Present mucous membranes moist and normal external ear exam Expanded ENT Exam TM/Canal exam: Bilateral TM: erythema and bulging Nose exam: Absent sinus tenderness Mouth exam: Present normal external inspection; Absent drooling Teeth exam: Present normal inspection Throat exam: Present tonsillar erythema, tonsillomegaly and tonsillar exudate Neck Neck exam: Present normal inspection, full ROM and trachea midline; Absent tenderness, meningismus or lymphadenopathy Chest Chest inspection: Present normal inspection and symmetric chest wall rise; A
[2022-06-30 14:22] VITALS: BP 127/85; PULSE 84; RESP 16; TEMP 36.7; O2SAT 97; BMI 23.0
[2022-06-30 14:30] LABS: UTC Strep Screen (Rapid) Negative (Negative)
[2022-06-30 15:27] LABS: Adenovirus,PCR Not Detected (NotDetected); Coronavirus 229E Not Detected (NotDetected); Coronavirus NL63 Not Detected (NotDetected); Coronavirus OC43 Not Detected (NotDetected); Coronovirus HKU1,PCR Not Detected (NotDetected); Human Metapneumovirus Not Detected (NotDetected); Influenza A, PCR Not Detected (NotDetected); Influenza AH1, 2009 Not Detected (NotDetected); Influenza AH1, PCR Not Detected (NotDetected); Influenza AH3,PCR Not Detected (NotDetected); Influenza B, PCR Not Detected (NotDetected); Parainfluenza 1, PCR Not Detected (NotDetected); Parainfluenza 2, PCR Not Detected (NotDetected); Parainfluenza 3, PCR Not Detected (NotDetected)
[2022-06-30 15:28] LABS: Bordetella Pertussis Not Detected (NotDetected); Chlamydophila Pneumoniae, PCR Not Detected (NotDetected); Coronavirus 19, PCR Not Detected (NotDetected); Mycoplasma Pneumoniae, PCR Not Detected (NotDetected); Parainfluenza 4, PCR Not Detected (NotDetected); Respiratory Syncytial Virus Not Detected (NotDetected)
[2022-06-30 15:32] VITALS: BP 127/85; PULSE 84; RESP 16; TEMP 36.7
[2022-07-01 07:13] LABS: Rhinovirus/Enterovirus Detected (NotDetected)
== END 2022-06-30 15:33 | disposition home or self-care (01) ==
PROVIDERS: Emergency Provider Nurse Practitioner Family; PCP Emergency Medicine
DX: J02.9 Acute pharyngitis, unspecified (principal); B34.1 Enterovirus infection, unspecified; R50.9 Fever, unspecified; M79.10 Myalgia, unspecified site; Z20.822 Contact with and (suspected) exposure to COVID-19; F17.210 Nicotine dependence, cigarettes, uncomplicated; Z79.52 Long term (current) use of systemic steroids; Z79.890 Hormone replacement therapy
CPT/HCPCS: 87581; 87632; 87798; 87880; 99213; C9803; G0463; U0003; U0005

== ENCOUNTER 2022-08-17 23:32 | Emergency (ER) | payer BC, SELFPAY ==
[2022-08-17 23:33] VITALS: BP 148/88; PULSE 123; RESP 18; TEMP 36.9; O2SAT 100; BMI 25.7
--- NOTE | 2022-08-17 23:39 | ECG_ITS ---
APPROVED REPORT Exam: Resting ECG HR:116 bpm ECG Measurements Heart Rate 116 AXES GA 134 P 79 QRSd 81 QRS 83 QT 291 T 61 QTc 360 Conclusion SINUS TACHYCARDIA MODERATE ST DEPRESSION [0.05+ mV ST DEPRESSION] ABNORMAL ECG UNCONFIRMED REPORT Electronically signed by : Pollo Hoff MD 08/19/2022 08:52:52
--- NOTE | 2022-08-18 | XR_ITS ---
PROCEDURE INFORMATION: Exam: XR Chest Exam date and time: 08/18/2022 12:04 AM Age: 41 years old Clinical indication: Pain; Other: Back; Additional info: Back pain TECHNIQUE: Imaging protocol: Radiologic exam of the chest. Views: 2 views. COMPARISON: CR XR HUMERUS LT 04/09/2020 6:41 PM FINDINGS: Lungs: Unremarkable. No consolidation. Pleural spaces: Unremarkable. No pleural effusion. No pneumothorax. Heart/Mediastinum: Unremarkable. No cardiomegaly. Bones/joints: Unremarkable. IMPRESSION: No acute findings.
[2022-08-18 00:11] LABS: Basophils # 0.1 K/mm3 (0-0.2); Basophils % 1.5 % (0.1-2.0); Eosinophils # 0.2 K/mm3 (0.0-0.4); Eosinophils % 2.4 % (0.1-12.0); Hematocrit 40.8 % (37.0-47.0); Hemoglobin 13.5 g/dL (12.2-16.2); Lymphocytes # 5.4 K/mm3 (0.7-4.5); Lymphocytes % 58.7 % (10-50); Mean Corpuscular HGB Conc 33.2 g/dL (31.8-35.4); Mean Corpuscular Hemoglobin 31.6 pg (27.0-31.2); Mean Corpuscular Volume 95.3 fl (81-99); Mean Platelet Volume 8.1 fl (7.4-10.4); Monocytes # 0.5 K/mm3 (0.1-1.0); Monocytes % 5.2 % (1.7-9.3); Neutrophils % 32.2 % (37.0-80.0); Platelet Count 320 K/mm3 (142-424); Red Blood Count 4.28 M/mm3 (4.20-5.40); Red Cell Distribution Width 13.6 % (11.5-17.5); White Blood Count 9.2 K/mm3 (4.8-10.8)
[2022-08-18 00:18] LABS: MANUAL DIFFERENTIAL MANUAL DIFFERENTIAL (MANUAL DIFF)
[2022-08-18 00:21] LABS: Alanine Aminotransferase 20 U/L (12-78); Albumin Level 4.9 g/dl (3.5-5.0); Albumin/Globulin Ratio 1.6 (1.1-1.8); Alkaline Phosphatase 41 U/L (38-126); Aspartate Amino Transferase 33 U/L (14-36); Bilirubin,Total 0.4 mg/dl (0.2-1.3); Blood Urea Nitrogen 12 mg/dl (7-17); Calcium 10.1 mg/dl (8.4-10.2); Carbon Dioxide 24 mmol/L (22.0-30.0); Chloride 103 mmol/L (98-107); Creatinine Clearance Estimated 96 mL/min (50-200); Estimated Glomerular Filt Rate 79 ml/min (>60); GFR (African American) 96 ML/MIN (>60); Globulin 3.1 g/dL (1.3-3.2); Glucose 107 mg/dl (74-100); Sodium 139 mmol/L (136-145)
[2022-08-18 00:24] LABS: Microscopic, Urine URINE MICROSCOPIC (MICROSCOPIC)
[2022-08-18 00:29] LABS: Appearance,Urine CLEAR (Clear); Bilirubin,Urine Negative (Negative); Blood, Urine Negative (Negative); Color,Urine YELLOW (Yellow); Glucose,Urine (UA) Negative (Negative); Ketones,Urine Negative (Negative); Leukocyte Esterase,Urine Negative (Negative); Nitrate,Urine Negative (Negative); Protein,Urine Negative (Negative); Specific Gravity, Urine <= 1.005 (1.005-1.030); Urobilinogen,Urine 0.2 EU/dl (0.2)
[2022-08-18 00:36] LABS: Troponin I < 0.01 ng/ml (0.00-0.034)
[2022-08-18 00:38] LABS: Anion Gap 15.7 mEq/L (5-15); Potassium 3.7 mmoL/L (3.5-5.1)
[2022-08-18 00:48] LABS: Bacteria,Urine Trace /lpf; WBC,Urine Occasional #/hpf (0-3)
--- NOTE | 2022-08-18 01:02 | HMH.EDBACK ---
Discharge Plan Disposition Patient Disposition: Home, Self-Care Chief Complaint: Back Pain/Injury Prescriptions Prescriptions: No Action estradiol [Minivelle] 0.1 mg/24 hr patch semiweekly 1 patch TRANSDERMA .bi weekly 7 Days Qty: 8 11RF azithromycin [Zithromax] 250 mg tablet 250 mg PO UD DOSE PK Qty: 6 0RF Rx Instructions: Take two (2) tablets today, then one (1) tablet days #2 thru #5 benzonatate [benzonatate] 100 mg capsule 100 mg PO TIDP PRN (Reason: Cough) Qty: 30 0RF methylprednisolone 4 mg Tablets,Dose Pack 4 mg PO DIRECTED Qty: 21 0RF Referrals Follow up/Referrals: Kirby Read MD [Primary Care Provider] - See instructions Clinical Impressions Clinical Impression: Lumbar back pain Instructions Patient Instructions: DI for Low Back Pain Discharge ED Provider: Arpit Mcwilliams Back Pain HPI General Chief Complaint: Back Pain/Injury Stated Complaint: HBP, pulse rate 144 Time Seen by Provider: 08/18/22 01:02 Mode of Arrival: Ambulatory Source of Information: Patient, Spouse and Medical Record Limitations: No Limitations Description of Symptoms (Recalled from ER Triage Doc. by RN): pt c\o htn and lower back pain 01/28. the pt reports 2 days ago she possibly s;ept on her back wrong and was having pain inbetween her shoulders and tonight she started having pain in her lower back slightly off to the right of her spine. pt states along with the pain she started anving uncontrollable shakes and her entire body shiveres and she can not stop it History of Present Illness HPI Narrative: has atraumatic lower back pain over the last few days w/o fever or rash- no rad to lower ext and no cauda equina sx- has episode of shaking at home but no fever - no recent viral illness Complaint: back pain Onset (ago): day(s) Duration: intermittent Similar Symptoms Previously: No Location: lumbar spine Severity: moderate Associated symptoms: denies other symptoms Related Data Previous Rx's Medication Instructions Recorded estradiol 0.1 mg/24 hr semiweekly 1 patch transdermal .bi weekly 7 12/01/21 transdermal patch (Minivelle) days #8 ea azithromycin 250 mg tablet 250 mg PO UD DOSE PK #6 tabs 06/30/22 (Zithromax) benzonatate 100 mg capsule 100 mg PO TIDP PRN Cough #30 caps 06/30/22 methylprednisolone 4 mg tablets in 4 mg PO DIRECTED #21 tabs 06/30/22 a dose pack Allergies Allergy/AdvReac Type Severity Reaction Status Date / Time No Known Drug Allergies Allergy Unknown Verified 06/30/22 14:28 [NKDA] [facility] Disclaimer: The information contained in this section may have been updated after the patient was seen, as this information can be updated by other users. Social History Smoking Status: Current every day smoker tobacco type: cigarettes packs per day: 1 second hand exposure: Yes alcohol intake: never substance use type: denies use current occupational status: employed Travel in the last 8 weeks: None housing: house current occupation: customer rep current occupational exposures/hazards: No caffeine: Yes ROS Obtained: Yes All systems reviewed & no additional complaints except as documented Physical Exam General General appearance: alert Head Head exam: normocephalic Eye Eye exam: Present PERRL and EOMI; Absent scleral icterus ENT ENT exam: Present mucous membranes moist Neck Neck exam: Present full ROM and trachea midline; Absent tenderness or meningismus Respiratory Respiratory exam: Present normal lung sounds bilaterally Cardiovascular Cardiovascular exam: Present regular rate; Absent systolic murmur Abdominal Exam Abdominal exam: Present soft; Absent tenderness, guarding or rebound Extremities Exam Extremities exam: Present full ROM; Absent calf tenderness Back Exam Back exam: Present tenderness; Absent CVA tenderness (R) or vertebral tenderness Neurological Exam Neurol
[2022-08-18 01:17] LABS: C-Reactive Protein 1.6 mg/L (0-4)
[2022-08-18 01:20] LABS: Erythrocyte Sedimentation Rate 9 mm/hr (0-20)
[2022-08-18 01:31] VITALS: BP 113/70; PULSE 79; RESP 16; TEMP 36.9; O2SAT 99
[2022-08-18 01:44] LABS: Eosinophils % 2 % (0-3); Lymphocytes % 68 % (10-50); Monocytes % 2 % (2-9); Neutrophils % 26 % (42-76); Total Cells Counted 100
[2022-08-18 01:45] LABS: Platelet Estimate Normal; RBC Morphology Normal
== END 2022-08-18 01:44 | disposition home or self-care (01) ==
PROVIDERS: Emergency Provider Emergency Medicine; PCP Family Medicine
DX: M54.50 Low back pain, unspecified (principal); R05.9 Cough, unspecified; F17.210 Nicotine dependence, cigarettes, uncomplicated; Z79.52 Long term (current) use of systemic steroids
CPT/HCPCS: 71046; 80053; 81001; 84145; 84484; 85007; 85025; 85651; 86140; 93005; 96361; 96374; 99285

== ENCOUNTER → 2022-09-16 07:32 | Outpatient (CLI) | payer BC, SELFPAY ==
--- NOTE | 2022-09-16 07:36 | US_ITS ---
FINAL REPORT CLINICAL HISTORY: NAUSEA FINDINGS: ULTRASOUND RIGHT UPPER QUADRANT Sonographic imaging of the right upper quadrant was obtained. The pancreas is partially obscured. The liver is unremarkable. There are tiny proximal gallbladder polyps measuring up to 2 mm. No gallstones are identified. There is no gallbladder wall thickening. There is no biliary ductal dilatation. The common duct is normal at 4 mm. Limited images of the right kidney are unremarkable. IMPRESSION: Tiny gallbladder polyps without evidence of gallstones or biliary obstruction. Reviewed, Interpreted and Dictated by Aria Adamson MD Transcribed by Rajni Graham Authenticated and [facility]
== END ==
LOC: RAD 07:32
PROVIDERS: PCP Family Medicine; Visit Provider Family Medicine
DX: R11.0 Nausea (principal)
CPT/HCPCS: 76705

== ENCOUNTER → 2022-09-28 08:20 | Outpatient (CLI) | payer BC, SELFPAY ==
--- NOTE | 2022-09-28 08:29 | FL_ITS ---
FINAL REPORT CLINICAL HISTORY: nausea x 7 months 1.54 fluoro time FINDINGS: UPPER GI WITH SBFT UPPER GI EXAM HISTORY: Abdominal pain, nausea. PROCEDURE: The patient ingested barium. Effervescent crystals were also administered. Spot and overhead films were obtained. FINDINGS: The esophagus is normal. There is no hiatal hernia. There is mild gastroesophageal reflux. Peristalsis is normal. The rugal fold pattern of the stomach is normal. The duodenal bulb is normal. FLUOROSCOPY TIME: 1.54 minutes IMPRESSION: Mild gastroesophageal reflux. Otherwise, unremarkableupper GI. SBFT: The vegetable specker film demonstrates a moderate amount of stool throughout the colonal. There is no evidence of obstruction. The mucosal fold pattern is normal. The terminal ilium is normal. IMPRESSION: Normal SBFT. Films reviewed , interpreted and dictated by Dr. Oswald. Transcribed by Jamal Nathan PA-C. Reviewed, Interpreted and Dictated by Christiano Oswald MD Transcribed by RUPERT Urbina Authenticated and . [facility]
== END ==
PROVIDERS: PCP Family Medicine; Visit Provider Family Medicine
DX: R11.0 Nausea (principal)
CPT/HCPCS: 74246; 74248

== ENCOUNTER 2023-08-06 10:46 | Emergency (ER) | payer SELFPAY ==
[2023-08-06 10:48] VITALS: BP 115/81; PULSE 87; RESP 16; TEMP 37; O2SAT 99; BMI 20.5
[2023-08-06 11:20] LABS: Microscopic, Urine URINE MICROSCOPIC (MICROSCOPIC)
[2023-08-06 11:30] VITALS: BP 112/75; PULSE 82; RESP 17; O2SAT 96
--- NOTE | 2023-08-06 11:30 | PC.NURSE ---
Dr. Tierney at [facility] for pt eval
[2023-08-06 11:33] LABS: Appearance,Urine CLEAR (Clear); Bilirubin,Urine Negative (Negative); Blood, Urine Negative (Negative); Color,Urine YELLOW (Yellow); Glucose,Urine (UA) Negative (Negative); Ketones,Urine TRACE (Negative); Leukocyte Esterase,Urine Negative (Negative); Nitrate,Urine Negative (Negative); PH,Urine 6.5 (5.0-8.5); Protein,Urine Negative (Negative); Specific Gravity, Urine 1.015 (1.005-1.030); Urobilinogen,Urine 0.2 EU/dl (0.2)
[2023-08-06 11:46] LABS: Bacteria,Urine Trace /lpf; WBC,Urine Occasional #/hpf (0-3)
--- NOTE | 2023-08-06 11:46 | ECG_ITS ---
APPROVED REPORT Exam: Resting ECG HR:85 bpm ECG Measurements Heart Rate 85 AXES IA 124 P 67 QRSd 85 QRS 84 QT 366 T 72 QTc 408 Conclusion SINUS RHYTHM NONSPECIFIC T-WAVE ABNORMALITY BORDERLINE ECG UNCONFIRMED REPORT Electronically signed by : Pollo Hoff MD 08/07/2023 14:45:50
[2023-08-06 11:47] LABS: Basophils % 0.4 % (0.1-2.0); Eosinophils # 0.1 K/mm3 (0.0-0.4); Eosinophils % 2.1 % (0.1-12.0); Hemoglobin 14.1 g/dL (12.2-16.2); Lymphocytes # 0.9 K/mm3 (0.7-4.5); Lymphocytes % 16.6 % (10-50); Mean Corpuscular HGB Conc 32.8 g/dL (31.8-35.4); Mean Corpuscular Hemoglobin 31.7 pg (27.0-31.2); Mean Corpuscular Volume 96.5 fl (81-99); Mean Platelet Volume 8.4 fl (7.4-10.4); Monocytes # 0.2 K/mm3 (0.1-1.0); Monocytes % 3.8 % (1.7-9.3); Neutrophils # 4.3 K/mm3 (1.8-7.8); Neutrophils % 77.1 % (37.0-80.0); Platelet Count 222 K/mm3 (142-424); Red Blood Count 4.46 M/mm3 (4.20-5.40); Red Cell Distribution Width 13.4 % (11.5-17.5); White Blood Count 5.6 K/mm3 (4.8-10.8)
[2023-08-06 11:48] LABS: Coronavirus 19, PCR Not Detected (NotDetected); Influenza A, PCR Not Detected (NotDetected); Influenza B, PCR Not Detected (NotDetected)
[2023-08-06 11:50] LABS: Alanine Aminotransferase 20 U/L (12-78); Albumin Level 4.6 g/dl (3.5-5.0); Albumin/Globulin Ratio 1.4 (1.1-1.8); Alkaline Phosphatase 48 U/L (38-126); Anion Gap 12.1 mEq/L (5-15); Aspartate Amino Transferase 35 U/L (14-36); Bilirubin,Total 0.5 mg/dl (0.2-1.3); Blood Urea Nitrogen 9 mg/dl (7-17); Calcium 8.8 mg/dl (8.4-10.2); Carbon Dioxide 24 mmol/L (22.0-30.0); Chloride 103 mmol/L (98-107); Creatinine Clearance Estimated 105 mL/min (50-200); Estimated Glomerular Filt Rate 110 ml/min (>60); GFR (African American) 133 ML/MIN (>60); Globulin 3.2 g/dL (1.3-3.2); Glucose 92 mg/dl (74-100); Lipase 109 U/L (23-300); Potassium 4.1 mmoL/L (3.5-5.1); Sodium 135 mmol/L (136-145); Total Protein,Serum 7.8 g/dl (6.3-8.2)
[2023-08-06 11:57] LABS: HCG Qualitative, Serum Negative (Negative)
[2023-08-06 12:00] VITALS: BP 115/79; PULSE 82; RESP 18; O2SAT 97
--- NOTE | 2023-08-06 12:15 | HMH.EDGENADL ---
Discharge Plan Disposition Patient Disposition: Home, Self-Care Condition: Good Prescriptions Prescriptions: New pantoprazole 40 mg tablet,delayed release (DR/EC) 40 mg PO DAILY Qty: 30 1RF ondansetron 4 mg tablet,disintegrating 4 mg PO Q8H PRN (Reason: nausea and vomiting) 4 Days Qty: 12 0RF No Action estradiol [Minivelle] 0.1 mg/24 hr patch semiweekly 1 patch TRANSDERMA .bi weekly 7 Days Qty: 8 11RF omeprazole 40 mg capsule,delayed release(DR/EC) 40 mg PO DAILY Referrals Follow up/Referrals: Aria Beltre MD [Primary Care Provider] - See instructions Activity Restrictions/Add. Instructions Additional Instructions/Restrictions: You were evaluated in the emergency department today. We are changing your omeprazole to pantoprazole to see if this gets you better relief. Please take this daily as prescribed. 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 Follow-up closely with your primary care provider for further reassessment. You may benefit from referral to surgery or gastroenterology for endoscopy if you continue to have symptoms. Avoid taking NSAIDs, eating acidic foods, eating spicy foods, or other concerns. Return to the emergency department for new or worsening symptoms. Clinical Impressions Clinical Impression: Chronic GERD Instructions Patient Instructions: DI for Gastroesophageal Reflux Disease (GERD), DI for Acute Abdominal Pain Discharge ED Provider: Valeria Tierney General Adult HPI General Chief complaint: Abdominal Pain Stated complaint: hot flashes, pain in abdomen Time Seen by Provider: 08/06/23 10:51 Mode of Arrival: Family Vehicle Source of Information: Patient Limitations: No Limitations Description of Symptoms (Recalled from ER Triage Doc. by RN): Pt c/o mid abdominal pain and excessive burping. States she has a hx of GERD and takes prilosec, but this is no longer helping since Monday. Today, the pain and burping is worsened. She took Pepto this morning wo relief. States she might have a bad gallbladder and was told they couldn't get to my appendix because it was inverted or something , this was during pt's hysterectomy years ago. Denies fever, chills, or n/v/d. Last BM was yesterday and normal. History of Present Illness HPI narrative: This patient is a 42-year-old female with a history of GERD and hysterectomy presenting to the emergency department for evaluation with concern for indigestion. She states that she has been taking her PPI daily since she has been prescribed in September, however over the last several days she has had no improvement. She states that she is burping frequently. She states she has had her gallbladder evaluated before but cannot remember what they said about it. On medical record review, she had tiny gallbladder polyps but no gallstones or biliary obstruction in August. She denies any fevers, chills, nausea, vomiting, changes in bowel movements, rashes, or swelling. She notes that she just has frequent burping and feeling of indigestion. Related Data Home Medications Medication Instructions Recorded Confirmed omeprazole 40 mg capsule,delayed 40 mg PO DAILY 08/06/23 08/06/23 release Previous Rx's Medication Instructions Recorded estradiol 0.1 mg/24 hr semiweekly 1 patch transdermal .bi weekly 7 12/01/21 transdermal patch (Minivelle) days #8 ea ondansetron 4 mg disintegrating 4 mg PO Q8H PRN nausea and 08/06/23 tablet vomiting 4 days #12 tabs pantoprazole 40 mg tablet,delayed 40 mg PO DAILY #30 tabs 08/06/23 release Allergies Allergy/AdvReac Type Severity Reaction Status Date / Time No Known Drug Allergies Allergy Unknown Verified 06/30/22 14:28 [NKDA] [facility] Disclaimer: The information contained in this section may have been updated after the patient was seen, as this information can be updated by other users. Social History (Reviewed 08/06/23 @ 12:19 by Valeria
[2023-08-06 12:30] VITALS: BP 118/78; PULSE 79; RESP 22; O2SAT 96
--- NOTE | 2023-08-06 13:36 | PC.NURSE ---
DR STOUT AT BEDSIDE TO UPDATE PT
[2023-08-06 13:42] VITALS: BP 119/75; PULSE 84; RESP 16; TEMP 36.7; O2SAT 98
== END 2023-08-06 13:48 | disposition home or self-care (01) ==
PROVIDERS: Emergency Provider Emergency Medicine; PCP Family Medicine
DX: K21.9 Gastro-esophageal reflux disease without esophagitis (principal); R10.9 Unspecified abdominal pain; F17.210 Nicotine dependence, cigarettes, uncomplicated
CPT/HCPCS: 80053; 81001; 83690; 84703; 85025; 87636; 93005; 96374; 96375; 99285; J2405

== ENCOUNTER 2024-06-10 01:53 | Emergency (ER) | payer SELFPAY ==
[2024-06-10 01:54] VITALS: BP 130/98; PULSE 85; RESP 20; TEMP 36.6; O2SAT 100; BMI 24.7
--- NOTE | 2024-06-10 02:05 | CT_ITS ---
PROCEDURE INFORMATION: Exam: CT Abdomen And Pelvis With Contrast Exam date and time: 06/10/2024 2:29 AM Age: 43 years old Clinical indication: Abdominal pain; Additional info: Llq pain TECHNIQUE: Imaging protocol: Computed tomography of the abdomen and pelvis with contrast. Radiation optimization: All CT scans at this facility use at least one of these dose optimization techniques: automated exposure control; mA and/or kV adjustment per patient size (includes targeted exams where dose is matched to clinical indication); or iterative reconstruction. Contrast material: ISOVUE; Contrast volume: 75 ml; Contrast route: IV; COMPARISON: MR PELVIS WO CON 08/12/2021 4:22 PM FINDINGS: Lungs: Right lower lobe calcified granuloma and minimal bibasilar atelectasis. Liver: No acute abnormality. Elongated right hepatic Teo lobe. Gallbladder and biliary ducts: No acute abnormality. No calcified stones. No ductal dilation. Pancreas: No acute abnormality. No ductal dilation. Spleen: No acute abnormality. Small splenic calcified granuloma. Adrenal glands: No significant or acute abnormality. Kidneys and ureters: No acute abnormality. No hydronephrosis. Stomach and bowel: Small amount of ingested contents within stomach. No significant or disproportionate large or small bowel distention. Moderate amount of gas and stool within redundant colon. No evidence of diverticulitis. Appendix: No findings to suggest acute appendicitis. Intraperitoneal space: No significant fluid collection. No free air. Vasculature: Atherosclerotic vascular calcification. No aortic aneurysm. Lymph nodes: No enlarged lymph nodes. Urinary bladder: Nondistended decompressed urinary bladder. Reproductive: Previous hysterectomy. Bones/joints: No acute osseous abnormality. No dislocation. Soft tissues: No significant soft tissue abnormalities. IMPRESSION: 1. No acute abnormality demonstrated. 2. Additional findings as described above.
--- NOTE | 2024-06-10 02:07 | HMH.EDGENADL ---
Discharge Plan Disposition Patient Disposition: Home, Self-Care Prescriptions Prescriptions: No Action estradiol [Minivelle] 0.1 mg/24 hr patch semiweekly 1 patch TRANSDERMA .bi weekly 7 Days Qty: 8 11RF omeprazole 40 mg capsule,delayed release(DR/EC) 40 mg PO DAILY pantoprazole 40 mg tablet,delayed release (DR/EC) 40 mg PO DAILY Qty: 30 1RF ondansetron 4 mg tablet,disintegrating 4 mg PO Q8H PRN (Reason: nausea and vomiting) 4 Days Qty: 12 0RF Referrals Follow up/Referrals: Aria Beltre MD [Primary Care Provider] - See instructions Activity Restrictions/Add. Instructions Additional Instructions/Restrictions: Please follow-up with your primary care provider. Please return to the emergency department if you develop any new or worsening symptoms or become concerned for your health. Consider MiraLAX to improve your bowel regularity. Consider Gas-X as well. Clinical Impressions Clinical Impression: Abdominal pain, acute, left lower quadrant Instructions Patient Instructions: DI for Acute Abdominal Pain Print Language Print Language: Russian Discharge ED Provider: Alfredo Thao General Adult HPI General Chief complaint: Abdominal Pain Stated complaint: left side abd pain Time Seen by Provider: 06/10/24 02:00 Mode of Arrival: Ambulatory Source of Information: Patient Limitations: No Limitations Description of Symptoms (Recalled from ER Triage Doc. by RN): pt reports lower left sided abdominal pain that began monday night and subsided but cam eback worse tonight at 6pm. pt tried an enema at home without sucess. History of Present Illness HPI narrative: 43-year-old female with history of bilateral salpingectomy and hysterectomy presents for left lower abdominal pain. She reports it feels like it is deep. She denies any urinary symptoms. Denies any trauma or activity that brought it on. She felt that on Monday but it went away and then came on hard at 6 PM and has been worsening. She tried taking a hot bath and doing other things but it did not help at home. She reports that she is chronically constipated and often goes weeks without a bowel movement, she reports her most recent bowel movement was 3 days ago. She denies any recent fever or illness. Related Data Home Medications ?Medication ?Instructions ?Recorded ?Confirmed omeprazole 40 mg capsule,delayed 40 mg PO DAILY 08/06/23 08/06/23 release Previous Rx's ?Medication ?Instructions ?Recorded estradiol 0.1 mg/24 hr semiweekly 1 patch transdermal .bi weekly 7 12/01/21 transdermal patch (Minivelle) days #8 ea ondansetron 4 mg disintegrating 4 mg PO Q8H PRN nausea and 08/06/23 tablet vomiting 4 days #12 tabs pantoprazole 40 mg tablet,delayed 40 mg PO DAILY #30 tabs 08/06/23 release Allergies Allergy/AdvReac Type Severity Reaction Status Date / Time No Known Drug Allergies Allergy Unknown Verified 06/30/22 14:28 [NKDA] [facility] Disclaimer: The information contained in this section may have been updated after the patient was seen, as this information can be updated by other users. Social History Smoking Status: Current every day smoker tobacco type: cigarettes packs per day: 1 second hand exposure: Yes alcohol intake: never substance use type: denies use current occupational status: employed Travel in the last 8 weeks: None housing: house current occupation: customer rep current occupational exposures/hazards: No caffeine: Yes Other Medical History Have you received the Flu Vaccine for this season: No Have you received the Pneumonia Vaccine: No ROS Obtained: Yes All systems reviewed & no additional complaints except as documented Physical Exam General General appearance: alert and in no apparent distress Head Head exam: atraumatic and normocephalic Eye Eye exam: Present normal appearance, PERRL and EOMI ENT ENT exam: Present normal oropharynx and normal external ear exam Neck Neck exam: Present normal inspection and full ROM Chest Chest inspection: Present normal inspection and symmetric chest wall rise; Absent tenderness Respiratory Respiratory exam: Present normal lung sounds bilaterally; Absent respiratory distress Cardiovascular Cardiovascular exam: Present regular rate and normal rhythm Abdominal Exam Abdominal exam: Present soft and tenderness (Left lower quadrant); Absent distention or guarding Extremities Exam Extremities exam: Present normal inspection; Absent edema or joint swelling Back Exam Back exam: Present normal inspection; Absent tenderness Neurological Exam Neurological exam: Present alert and oriented X3; Absent motor sensory deficit Psychiatric Psychiatric exam: Present normal affect and normal mood Skin Skin exam: Present warm, dry and normal color Lymphatic Lymphatic Findings: no adenopathy Medical Decision Making Medical Records Medical records reviewed: Yes I reviewed the patient's medical records. Screening: Per USPSTF and CDC recommendations, given the prevalence of disease in our region, it is our hospital?s policy to screen for HIV and viral Hepatitis for all patients aged 18 and over and those with ongoing risk factors. Yasmany Inquiry Pt receiving controlled substance: No Yasmany was queried for this patient: No Vital Signs: 06/10/24 01:54 06/10/24 02:55 Temperature 97.8 F 97.8 F Temperature Source Oral Oral Pulse Rate 63 Pulse Rate [Right] 85 Respiratory Rate 20 18 Blood Pressure 100/75 L Blood Pressure [Right Arm] 130/98 H Blood Pressure Mean [Right Arm] 108 Blood Pressure Source Automatic Cuff Blood Pressure Position Sitting 02 Sat by Pulse Oximetry 100 Oxygen Delivery Method Room Air Lab Data Lab results reviewed: Yes I reviewed the patient's lab results. Lab Results 06/10/24 02:09: WBC 7.4, RBC 4.20, Hgb 13.4, Hct 40.1, MCV 95.7, MCH 32.0 H, MCHC 33.4, RDW 13.7, Plt Count 283, MPV 7.6, Neut % (Auto) 32.4 L, Lymph % (Auto) 57.5 H, [place] % (Auto) 6.3, Eos % (Auto) 2.8, Baso % (Auto) 1.1, Neut # (Auto) 2.4, Lymph # (Auto) 4.2, [place] # (Auto) 0.5, Eos # (Auto) 0.2, Baso # (Auto) 0.1, Total Counted 100, Neutrophils % (Manual) 32 L, Lymphocytes % (Manual) 54 H, Atypical Lymphs % 3.0, Monocytes % (Manual) 8, Eosinophils % (Manual) 3, Platelet Estimate Normal, RBC Morphology Normal, Sodium 140, Potassium 3.6, Chloride 106, Carbon Dioxide 26, Anion Gap 11.6, BUN 11, Creatinine 0.60, Estimated Creat Clear 117, Estimated GFR 109, Est GFR ( Amer) 132, Glucose 103 H, Calcium 9.4, Total Bilirubin 0.4, AST 27, ALT 19, Alkaline Phosphatase 44, Total Protein 7.3, Albumin 4.5, Globulin 2.8, Albumin/Globulin Ratio 1.6, Lipase 125 06/10/24 02:09 06/10/24 02:09 Orders (Tests/Meds): ED MEDICATIONS Discontinued Medications Generic Name Dose Route Start Last Admin Trade Name J Luis PRN Reason Stop Dose Admin Acetaminophen 1,000 mg 06/10/24 02:05 06/10/24 02:13 Acetaminophen 500mg Tab PO 06/10/24 02:06 1,000 mg ONCE ONE Administration Iopamidol 75 ml 06/10/24 02:34 06/10/24 02:37 Iopamidol-370 (76%);100ml Bottle IV 06/10/24 02:35 75 ml ONCE ONE Administration Ketorolac Tromethamine 30 mg 06/10/24 02:05 06/10/24 02:13 Ketorolac 30mg/Ml Vial IV 06/10/24 02:06 30 mg ONCE ONE Administration Methocarbamol 500 mg 06/10/24 02:05 06/10/24 02:13 Methocarbamol 500mg Tablet PO 06/10/24 02:06 500 mg ONCE ONE Administration Sodium Chloride 10 ml 06/10/24 02:34 06/10/24 02:37 Sodium Chloride 0.9% 10ml Syr (Rad Only) IV 07/10/24 02:33 10 ml NEEDED PRN Administration Maintain IV Site ORDERS Category Date Time Status CT abdomen pelvis w con Stat Cat Scan 06/10/24 02:05 Completed CBC w/Auto Diff [Complete Blood Count Auto Diff] Stat Lab 06/10/24 02:09 Completed CMP [Comprehensive Metabolic Panel] Stat Lab 06/10/24 02:09 Completed HIV (1&2) Antibody Rapid Stat Lab 06/10/24 02:09 Received Hep C Ab with Reflex to RNA Stat Lab 06/10/24 02:09 Received Lipase Stat Lab 06/10/24 02:09 Completed Medical Decision Narrative: 43-year-old female with history of constipation, hysterectomy and bilateral salpingectomy presents for left low abdominal pain. History was obtained via interactive discussion with patient, chart review. On arrival, patient is [afebrile, hemodynamically stable, satting appropriately, alert, oriented x4, GCS 15], moving all extremities spontaneously. Full physical exam performed and significant for left lower quadrant abdominal tenderness. Denies any urinary symptoms. Differential includes but is not limited to constipation, diverticulitis, kidney stone, musculoskeletal strain. Patient was given Tylenol Toradol for symptomatic management and correction of underlying abnormalities. Workup initiated including CBC CMP CT abdomen and pelvis with IV contrast. On re-evaluation, patient [remains afebrile, HD stable.] She reports marked symptomatic improvement. Laboratory workup independently interpreted by me and significant for no significant leukocytosis, normal renal function. Imaging independently interpreted by me and significant for large redundant colon with a moderate amount of gas and stool. No other acute abnormalities noted. See radiology read for full review of final results. Given patient history, exam and workup, patient's presentation most likely represents gas pains related to chronic constipation and redundant colon. These findings were communicated to the patient she was discharged in stable condition with return precautions.. Procedures Risk/Benefits of Procedure(s) Were Explained: Yes Critical Care Critical Care Time Critical Care Time: No
[2024-06-10] MEDS: KETOROLAC 30MG/ML VIAL 30 MG IV (02:13)
[2024-06-10] MEDS: ACETAMINOPHEN 500MG TAB 1000 MG PO (02:13)
[2024-06-10] MEDS: METHOCARBAMOL 500MG TABLET 500 MG PO (02:13)
[2024-06-10 02:20] LABS: Basophils # 0.1 K/mm3 (0-0.2); Basophils % 1.1 % (0.1-2.0); Eosinophils # 0.2 K/mm3 (0.0-0.4); Eosinophils % 2.8 % (0.1-12.0); Hematocrit 40.1 % (37.0-47.0); Hemoglobin 13.4 g/dL (12.2-16.2); Lymphocytes # 4.2 K/mm3 (0.7-4.5); Lymphocytes % 57.5 % (10-50); Mean Corpuscular HGB Conc 33.4 g/dL (31.8-35.4); Mean Corpuscular Volume 95.7 fl (81-99); Mean Platelet Volume 7.6 fl (7.4-10.4); Monocytes # 0.5 K/mm3 (0.1-1.0); Monocytes % 6.3 % (1.7-9.3); Neutrophils # 2.4 K/mm3 (1.8-7.8); Neutrophils % 32.4 % (37.0-80.0); Platelet Count 283 K/mm3 (142-424); Red Cell Distribution Width 13.7 % (11.5-17.5); White Blood Count 7.4 K/mm3 (4.8-10.8)
[2024-06-10 02:21] LABS: Albumin Level 4.5 g/dl (3.5-5.0); Chloride 106 mmol/L (98-107); Potassium 3.6 mmoL/L (3.5-5.1); Sodium 140 mmol/L (136-145)
[2024-06-10 02:22] LABS: MANUAL DIFFERENTIAL MANUAL DIFFERENTIAL (MANUAL DIFF)
[2024-06-10 02:23] LABS: Blood Urea Nitrogen 11 mg/dl (7-17); Creatinine Clearance Estimated 117 mL/min (50-200); Estimated Glomerular Filt Rate 109 ml/min (>60); GFR (African American) 132 ML/MIN (>60)
[2024-06-10 02:24] LABS: Alanine Aminotransferase 19 U/L (12-78); Albumin/Globulin Ratio 1.6 (1.1-1.8); Alkaline Phosphatase 44 U/L (38-126); Anion Gap 11.6 mEq/L (5-15); Aspartate Amino Transferase 27 U/L (14-36); Bilirubin,Total 0.4 mg/dl (0.2-1.3); Calcium 9.4 mg/dl (8.4-10.2); Carbon Dioxide 26 mmol/L (22.0-30.0); Globulin 2.8 g/dL (1.3-3.2); Glucose 103 mg/dl (74-100); Lipase 125 U/L (23-300); Total Protein,Serum 7.3 g/dl (6.3-8.2)
[2024-06-10] MEDS: IOPAMIDOL-370 (76%);100ML BOTTLE 75 ML IV (02:37)
[2024-06-10] MEDS: SODIUM CHLORIDE 0.9% 10ML SYR (RAD ONLY) 10 ML IV (02:37)
[2024-06-10 02:38] LABS: Eosinophils % 3 % (0-3); Lymphocytes % 54 % (10-50); Monocytes % 8 % (2-9); Neutrophils % 32 % (42-76); Platelet Estimate Normal; RBC Morphology Normal; Total Cells Counted 100
[2024-06-10 02:55] VITALS: BP 100/75; PULSE 63; RESP 18; TEMP 36.6; O2SAT 99
[2024-06-10 08:22] LABS: HIV (1&2) Antibody Rapid NONREACTIVE (NONREACTIVE)
[2024-06-11 08:59] LABS: HCV Ab Non Reactive (Non Reactive)
== END 2024-06-10 03:01 | disposition home or self-care (01) ==
PROVIDERS: Emergency Provider Emergency Medicine; PCP Family Medicine
DX: R10.32 Left lower quadrant pain (principal); K59.00 Constipation, unspecified
CPT/HCPCS: 74177; 80053; 83690; 85007; 85025; 86803; 87389; 96374; 99285; J1885; Q9967